=== PATIENT | male | born 1955 | race Two or more races ===

== ENCOUNTER 2017-03-13 10:05 | Inpatient (IN) | payer OTHER ==
[2017-03-13 10:19] VITALS: BMI 32.8
--- NOTE | 2017-03-13 10:39 | PDOC ---
History of Present Illness - General History Source: Patient Exam Limitations: No Limitations - History of Present Illness Initial Comments: 03/13/17 11:25 Patient is a 61 y/o male who presents to the ED who c/o of R elbow pain. Pt. states he was seen by his PCP Dr. Bal last week and was diagnosed with cellulitis of the R elbow. He was placed on Keflex on 03/07/17. He states that since being placed on Keflex, his elbow has not gotten better. He states the area of redness has increased and the swelling to his elbow has also increased. He states that he can move his elbow. Denies fevers, chills, constitutional symptoms, N/V/D, SOB, chest pain. <Bethany Cohn - Last Filed: 03/14/17 16:29> <Ariana Gao - Last Filed: 03/15/17 09:16> - General Chief Complaint: Redness To Affected Area Stated Complaint: WOUND INFECTION,high bp Time Seen by Provider: 03/13/17 10:37 Past History - Past Medical History Cancer: Yes (throat) Cardiac Disorders: Yes (cardiac cath) Diabetes: Yes HTN: Yes Hypercholesterolemia: Yes - Surgical History Cardiac Surgery: Yes (cath no stent) Orthopedic Surgery: (bilateral shoulders, left knee) - Immunization History Immunization Up to Date: Yes - Psycho/Social/Smoking Cessation Hx Anxiety: No Suicidal Ideation: No Smoking Status: No Smoking History: Former smoker Have you smoked in the past 12 months: No Number of Cigarettes Smoked Daily: 0 If you are a former smoker, when did you quit?: 2009 Information on smoking cessation initiated: No Hx Alcohol Use: No Drug/Substance Use Hx: No Substance Use Type: None Hx Substance Use Treatment: No <Bethany Cohn - Last Filed: 03/14/17 16:29> <Ariana Gao - Last Filed: 03/15/17 09:16> - Past Medical History Allergies/Adverse Reactions: Allergies Allergy/AdvReac Type Severity Reaction Status Date / Time No Known Allergies Allergy Verified 03/13/17 10:14 Home Medications: Ambulatory Orders Amlodipine Besylate [Norvasc -] 5 mg PO DAILY 02/22/14 Lisinopril [Prinivil -] 40 mg PO DAILY 02/22/14 Metformin HCl [Metformin HCl ER] 1,000 mg PO BID 02/23/14 Montelukast Na [Singulair -] 10 mg PO HS #30 02/23/14 Aspirin [ASA -] 81 mg PO DAILY 03/10/15 Metoprolol Tartrate 25 mg PO DAILY 03/10/15 Multivitamin with Minerals [Icaps Plus] 1 each PO DAILY 03/10/15 Rosuvastatin Calcium [Crestor] 20 mg PO ASDIR 03/10/15 Review of Systems - Review of Systems Able to Perform ROS?: Yes Is the patient limited [place] proficient: No Constitutional: Yes: Chills. No: Fever, Malaise, Weakness Respiratory: No: Cough, Shortness of Breath, Wheezing Cardiac (ROS): No: Chest Pain, Lightheadedness, Palpitations, Chest Tightness ABD/GI: No: Constipated, Diarrhea, Nausea, Vomiting Integumentary: Yes: Erythema (r elbow), Rash (r elbow) Neurological: No: Headache, Numbness, Paresthesia, Weakness All Other Systems: Reviewed and Negative <Bethany Cohn - Last Filed: 03/14/17 16:29> *Physical Exam - Vital Signs Last Vital Signs Temp Pulse Resp BP Pulse Ox 98.6 F 88 18 162/116 100 03/13/17 10:15 03/13/17 10:15 03/13/17 10:15 03/13/17 10:15 03/13/17 10:15 - Physical Exam Comments: 03/13/17 18:56 GENERAL: Well developed, well nourished. Awake and alert. No acute distress. HEENT: Normocephalic, atraumatic. PERRLA, EOMI. No conjunctival pallor. Sclera are non- icteric. Moist mucous membranes. Oropharynx is clear. NECK: Supple. Full ROM. No JVD. Carotid pulses 2+ and symmetric, without bruits. No thyromegaly. No lymphadenopathy. CARDIOVASCULAR: Regular rate and rhythm. No murmurs, rubs, or gallops. Distal pulses are 2+ and symmetric. PULMONARY: No evidence of respiratory distress. Lungs clear to auscultation bilaterally. No wheezing, rales or rhonchi. ABDOMINAL: Soft. Non-tender. Non-distended. No rebound or guarding. No organomegaly. Normoactive bowel sounds. MUSCULOSKELETAL Normal range of motion at all joints. No bony deformities or tenderness. No CVA tenderness. EXTREMITIES: Swelling and redness to the R elbow. Able to fully extend and flex the elbow with slight pain. Surrounding cellulitis extening to the medial mid upper arm to the medial mid lower arm. No cyanosis. No clubbing. No edema. No calf tenderness. SKIN: Warm and dry. Normal capillary refill. No rashes. No jaundice. NEUROLOGICAL: Alert, awake, appropriate. Cranial nerves 2-12 intact. No deficits to light touch and temperature in face, upper extremities and lower extremities. No motor deficits in the in face, upper extremities and lower extremities. Normoreflexic in the upper and lower extremities. Normal speech. Toes are down- going bilaterally. Gait is normal without ataxia. PSYCHIATRIC: Cooperative. Good eye contact. Appropriate mood and affect. <Bethany Cohn - Last Filed: 03/14/17 16:29> - Vital Signs Last Vital Signs Temp Pulse Resp BP Pulse Ox 98.4 F 79 20 146/86 99 03/15/17 07:41 03/15/17 07:41 03/15/17 07:41 03/15/17 07:41 03/14/17 21:00 <Ariana Gao - Last Filed: 03/15/17 09:16> ED Treatment Course - LABORATORY CBC & Chemistry Diagram: 03/14/17 07:40 03/14/17 07:40 <Bethany Cohn - Last Filed: 03/14/17 16:29> - LABORATORY CBC & Chemistry Diagram: 03/14/17 07:40 03/14/17 07:40 - ADDITIONAL ORDERS Additional order review: 03/13/17 11:05 Blood Culture - Preliminary Blood - Peripheral Venous NO GROWTH OBTAINED AFTER 24 HOURS, INCUBATION TO CONTINUE FOR 4 DAYS. 03/13/17 11:05 Blood Culture - Preliminary Blood - Peripheral Venous NO GROWTH OBTAINED AFTER 24 HOURS, INCUBATION TO CONTINUE FOR 4 DAYS. 03/13/17 11:05 Urine Culture - Final Urine - Urine Clean Catch NO GROWTH OBTAINED 03/13/17 11:05 RBC 5.23 MCV 89.4 MCHC 34.5 RDW 13.3 MPV 8.1 Neutrophils % 75.5 Lymphocytes % 14.2 D Monocytes % 7.7 Eosinophils % 1.6 Basophils % 1.0 - Medications Given in the ED: ED Medications Discontinued Medications Generic Name Dose Route Start Last Admin Trade Name Kal PRN Reason Stop Dose Admin Vancomycin HCl 1,000 mg/ 250 mls @ 250 mls/hr 03/13/17 10:59 03/13/17 12:00 Dextrose IVPB 03/13/17 11:58 250 mls/hr ONCE ONE Administration Protocol Piperacillin Sod/Tazobactam 50 mls @ 100 mls/hr 03/13/17 10:59 03/13/17 11:31 Sod 3.375 gm/ Dextrose IVPB 03/13/17 11:28 100 mls/hr ONCE ONE Administration Protocol Pneumococcal Polyvalent Vaccine 0.5 ml 03/13/17 17:00 03/13/17 19:30 Pneumovax - IM 03/13/17 17:01 0.5 ml .ONCE ONE Administration <Ariana Gao - Last Filed: 03/15/17 09:16> Medical Decision Making - Medical Decision Making 03/13/17 11:44 Pt. is a 61 y/o male with PMH of DM who presents to the ED with worsening elbow pain and cellulitis. Pt. is already on home antibiotics and failed therapy. Less likely septic joint/gout as patient can move the arm. Will order septic work up and pursue admission for IV antibiotics. PCP: Dr. Bal --> Dr. Baez admits 1. Septic work up 2. IV Vanc and Zosyn in the ED 3. Re-evaluate 03/14/17 12:49 Labs show a slightly elevated WBC. Pt. states he overall feels well. Spoke with Dr. Baez and the case was discussed. Accepts the pt. for admission to med/ surg. <Bethany Cohn - Last Filed: 03/14/17 16:29> *DC/Admit/Observation/Transfer - Discharge Dispostion Admit: Yes <Bethany Cohn - Last Filed: 03/14/17 16:29> - Attestations Physician Attestion: I reviewed the case with the mid-level practitioner and agree with the mid- level practitioner's assessment, diagnosis and disposition. <Ariana Gao - Last Filed: 03/15/17 09:16> Diagnosis at time of Disposition: Cellulitis Qualifiers: Site of cellulitis: extremity Site of cellulitis of extremity: upper extremity Laterality: right Qualified Code(s): L03.113 - Cellulitis of right upper limb - Discharge Dispostion Condition at time of disposition: Stable
[2017-03-13] MEDS ORDERED: PIPERACILLIN/TAZOB 3.375 GM 3.375 GM in DEXTROSE 5%-WATER - 50 ML IVPB ONE (10:59)
[2017-03-13] MEDS ORDERED: VANCOMYCIN 1,000 MG in DEXTROSE 5%-WATER - 250 ML IVPB ONE (10:59)
[2017-03-13 11:36] LABS: EOSINOPHIL 1.6 % (0-4.5); MCH 30.9 pg (25.7-33.7); MCHC 34.5 g/dl (32.0-35.9); MEAN CELL VOLUME 89.4 fl (80-96); MEAN PLT VOLUME 8.1 fl (7.5-11.1); NEUTROPHILS 75.5 % (42.8-82.8); PLATELET COUNT 256 K/MM3 (134-434); RDW 13.3 % (11.9-15.9); WHITE BLOOD COUNT 10.4 K/mm3 (4.0-10.0)
[2017-03-13 11:46] LABS: INR 1.14 (0.82-1.09); PROTHROMBIN TIME (PATIENT) 12.6 SEC (9.98-11.88)
[2017-03-13 11:49] LABS: ACTIVATED PTT 35.6 SECONDS (26.9-34.4)
[2017-03-13 11:52] LABS: URINE APPEARANCE SLCLOUDY; URINE BILIRUBIN NEGATIVE (NEGATIVE); URINE BLOOD NEGATIVE (NEGATIVE); URINE COLOR DKYELLOW; URINE GLUCOSE (UA) NEGATIVE (NEGATIVE); URINE KETONE NEGATIVE (NEGATIVE); URINE LEUK ESTERASE NEGATIVE (NEGATIVE); URINE NITRITE NEGATIVE (NEGATIVE); URINE UROBILINOGEN NEGATIVE mg/dL (0.2-1.0)
[2017-03-13 11:54] LABS: ALBUMIN 4.3 g/dl (3.4-5.0); ANION GAP 10 (8-16); BILIRUBIN,TOTAL 0.5 mg/dL (0.2-1.0); CALCIUM 9.4 mg/dL (8.5-10.1); CO2 27 mmol/L (21-32); CREATININE 0.9 mg/dL (0.7-1.3); GLUCOSE,RANDOM 174 mg/dL (74-106); SGOT/AST 19 U/L (15-37); SGPT/ALT 45 U/L (12-78); TOT PROT 8.4 g/dl (6.4-8.2)
[2017-03-13 11:55] LABS: ALK PHOS 94 U/L (45-117)
[2017-03-13 12:04] LABS: URINE PROTEIN 1+ (NEGATIVE)
[2017-03-13 12:05] LABS: URINE MUCUS MODERATE; URINE RBC 1 /hpf (0-3); URINE WBC 1 /hpf (3-5)
[2017-03-13] MEDS ORDERED: ACETAMINOPHEN 325 MG TABLET (FP) PO PRN (15:27)
[2017-03-13] MEDS ORDERED: ONDANSETRON 4 MG/2 ML VIAL IVPB PRN (15:27)
--- NOTE | 2017-03-13 15:31 | HP ---
Admitting History and Physical - Primary Care Physician PCP: Thad Bal - Admission Chief Complaint: My arm History of Present Illness: Mr oHskins is a very pleasant 61 year old male who comes in after failing outpatient therapy for his cellulitis. He says that last he developed redness, pain, and swelling of his right elbow. He was seen as an outpatient and prescribed keflex. He was taking the keflex and while the swelling improved he noticed he was having worsening redness. On Sunday he had an episode of rigors that resolved. He has felt feverish but has not taken his temperature. He has muscle aches and general malaise. He denies lightheadedness, dizziness, passing out, chest pain, nausea, vomiting, diarrhea, constipation, difficulty or pain on urination, or leg swelling. He noted the redness increasing today and came in for further evaluation. History Source: Patient Limitations to Obtaining History: No Limitations - Past Medical History Cardiovascular: Yes: CAD, HTN. No: AFIB, CHF Pulmonary: Yes: COPD Endocrine: Yes: Diabetes Mellitus - Past Surgical History Past Surgical History: Yes: Joint Replacement (knee) - Smoking History Smoking history: Former smoker Have you smoked in the past 12 months: No Aproximately how many cigarettes per day: 0 If you are a former smoker, when did you quit?: 2009 - Alcohol/Substance Use Hx Alcohol Use: No History of Substance Use: reports: None - Social History ADL: Independent History of Recent Travel: No Home Medications - Allergies Allergies/Adverse Reactions: Allergies Allergy/AdvReac Type Severity Reaction Status Date / Time No Known Allergies Allergy Verified 03/13/17 10:14 - Home Medications Home Medications: Ambulatory Orders Amlodipine Besylate [Norvasc -] 5 mg PO DAILY 02/22/14 Lisinopril [Prinivil -] 40 mg PO DAILY 02/22/14 Metformin HCl [Metformin HCl ER] 1,000 mg PO BID 02/23/14 Montelukast Na [Singulair -] 10 mg PO HS #30 02/23/14 Aspirin [ASA -] 81 mg PO DAILY 03/10/15 Metoprolol Tartrate 25 mg PO DAILY 03/10/15 Multivitamin with Minerals [Icaps Plus] 1 each PO DAILY 03/10/15 Rosuvastatin Calcium [Crestor] 20 mg PO ASDIR 08/26/15 Family Disease History - Family Disease History Family Disease History: Heart Disease: Mother, Brother, Sister Review of Systems Findings/Remarks: Full review of systems obtained, as per HPI and otherwise negative Physical Examination Vital Signs: Vital Signs Temperature 37.0 C 03/13/17 10:15 Pulse Rate 87 03/13/17 12:15 Respiratory Rate 87 H 03/13/17 12:15 Blood Pressure 156/107 03/13/17 12:15 O2 Sat by Pulse Oximetry (%) 100 03/13/17 12:15 Constitutional: Yes: No Distress, Calm, Obese Eyes: Yes: Conjunctiva Clear, EOM Intact, PERRL HENT: Yes: Atraumatic, Normocephalic Cardiovascular: Yes: Regular Rate and Rhythm. No: Gallop, Murmur, Rub Respiratory: Yes: Regular, CTA Bilaterally. No: Rales, Rhonchi, Wheezes Gastrointestinal: Yes: Normal Bowel Sounds, Soft. No: Distention, Tenderness Extremities: Yes: Erythema (RUE) Edema: No Labs: Laboratory Results - last 24 hr 03/13/17 03/13/17 03/13/17 11:05 11:05 11:05 WBC 10.4 H D RBC 5.23 Hgb 16.1 Hct 46.7 MCV 89.4 MCH 30.9 MCHC 34.5 RDW 13.3 Plt Count 256 MPV 8.1 Neutrophils % 75.5 Lymphocytes % 14.2 D Monocytes % 7.7 Eosinophils % 1.6 Basophils % 1.0 ESR INR 1.14 PTT (Actin FS) 35.6 H Sodium Potassium Chloride Carbon Dioxide Anion Gap BUN Creatinine Creat Clearance w eGFR Random Glucose Lactic Acid Calcium Total Bilirubin AST ALT Alkaline Phosphatase C-Reactive Protein Total Protein Albumin Urine Color Dkyellow Urine Appearance Slcloudy Urine pH 5.0 Urine Protein 1+ H Urine Glucose (UA) Negative Urine Ketones Negative Urine Blood Negative Urine Nitrite Negative Urine Bilirubin Negative Urine Urobilinogen Negative Ur Leukocyte Esterase Negative Urine RBC 1 Urine WBC 1 Ur Epithelial Cells Rare Urine Mucus Moderate 03/13/17 03/13/17 03/13/17 11:05 11:05 11:23 WBC RBC Hgb Hct MCV MCH MCHC RDW Plt Count MPV Neutrophils % Lymphocytes % Monocytes % Eosinophils % Basophils % ESR INR PTT (Actin FS) Sodium 137 Potassium 3.7 Chloride 100 Carbon Dioxide 27 Anion Gap 10 BUN 12 Creatinine 0.9 Creat Clearance w eGFR > 60 Random Glucose 174 H D Lactic Acid 1.9 Calcium 9.4 Total Bilirubin 0.5 AST 19 D ALT 45 D Alkaline Phosphatase 94 C-Reactive Protein 2.0 H Cancelled Total Protein 8.4 H Albumin 4.3 Urine Color Urine Appearance Urine pH Urine Protein Urine Glucose (UA) Urine Ketones Urine Blood Urine Nitrite Urine Bilirubin Urine Urobilinogen Ur Leukocyte Esterase Urine RBC Urine WBC Ur Epithelial Cells Urine Mucus 03/13/17 11:39 WBC RBC Hgb Hct MCV MCH MCHC RDW Plt Count MPV Neutrophils % Lymphocytes % Monocytes % Eosinophils % Basophils % ESR 51 H INR PTT (Actin FS) Sodium Potassium Chloride Carbon Dioxide Anion Gap BUN Creatinine Creat Clearance w eGFR Random Glucose Lactic Acid Calcium Total Bilirubin AST ALT Alkaline Phosphatase C-Reactive Protein Total Protein Albumin Urine Color Urine Appearance Urine pH Urine Protein Urine Glucose (UA) Urine Ketones Urine Blood Urine Nitrite Urine Bilirubin Urine Urobilinogen Ur Leukocyte Esterase Urine RBC Urine WBC Ur Epithelial Cells Urine Mucus Imaging - Results Chest X-ray: Report Reviewed, Image Reviewed Problem List - Problems (1) Cellulitis Assessment/Plan: -given vancomycin and zosyn in the ED -case d/w ID -continue vancomycin -monitor for improvement Code(s): L03.90 - CELLULITIS, UNSPECIFIED Qualifiers: Site of cellulitis: extremity Site of cellulitis of extremity: upper extremity Laterality: right Qualified Code(s): L03.113 - Cellulitis of right upper limb (2) ASHD (arteriosclerotic heart disease) Assessment/Plan: -quiescent -home meds reviewed -continue crestor, zetia, aspirin, lisinopril, and toprol xl Code(s): I25.10 - ATHSCL HEART DISEASE OF [place] CORONARY ARTERY W/O ANG PCTRS (3) Diabetes Assessment/Plan: -continue glyburide, metformin, and januvia -diabetic diet -FSBS and SSI Code(s): E11.9 - TYPE 2 DIABETES MELLITUS WITHOUT COMPLICATIONS (4) Hypertension Assessment/Plan: -continue lisinopril, amlodipine, and toprol xl Code(s): I10 - ESSENTIAL (PRIMARY) HYPERTENSION
[2017-03-13] MEDS ORDERED: PNEUMOC 13-VAL CONJ-DIP CRM/PF 0.5 ML DISP.SYRIN IM ONE (15:36)
--- NOTE | 2017-03-13 16:53 | EKG ---
Test Reason : Blood Pressure : / mmHG Vent. Rate : 087 BPM Atrial Rate : 087 BPM P-R Int : 144 ms QRS Dur : 088 ms QT Int : 354 ms P-R-T Axes : 053 016 061 degrees QTc Int : 425 ms NORMAL SINUS RHYTHM POSSIBLE LEFT ATRIAL ENLARGEMENT INFERIOR INFARCT (CITED ON OR BEFORE 25-APR-2011) ABNORMAL ECG WHEN COMPARED WITH ECG OF 23-FEB-2014 05:05, NO SIGNIFICANT CHANGE WAS FOUND REPEAT EKG IF CLINICALLY INDICATED Confirmed by ELMA HINOJOSA MD ([id number]) on 03/13/2017 4:52:40 PM Referred By: Confirmed By:ELMA HINOJOSA MD
[2017-03-13] MEDS ORDERED: PNEUMOCOCCAL 23 VACCINE 0.5 ML VIAL IM ONE (17:00)
--- NOTE | 2017-03-13 17:01 | PN ---
Progress Note (short form) - Note Progress Note: ID consult dictated imp/reccd 61 year old man with DM developed elbow/forearm swelling on Sunday- saw his PMD Dr Bal and was started on Keflex erythema spread over the weekend and he came to the ED this am olecranon bursitis with cellulitis doubt insect bite given vancomycin and zosyn in ED will continue Vancomycin with plans for shift to po clindamycin if arm continues to improve he is feeling much better and wants to go home probiotics
[2017-03-13] MEDS: metFORMIN HCL 500 MG TABLET (FP) PO SCH (17:11)
[2017-03-13] MEDS: INSULIN SLIDING SCALE (NOVOLOG) 1 VIAL SQ SCH ×2 (17:13→21:50)
[2017-03-13] MEDS ORDERED: PIPERACILLIN/TAZOB 3.375 GM/50 ML PRE-DOCKED IVPB SCH (18:00)
[2017-03-13] MEDS: glyBURIDE 5 MG TABLET (UD) PO SCH (18:21)
--- NOTE | 2017-03-13 18:40 | CONS ---
DATE OF CONSULTATION: DATE OF DICTATION: 03/13/2017 INFECTIOUS DISEASE CONSULTATION REQUESTING PHYSICIAN: Ayo Baez M.D. CONSULTING PHYSICIAN: Kari Romero M.D. HISTORY OF PRESENT ILLNESS: This is a 61-year-old man who has past medical history notable for diabetes and throat cancer. He presented to his PMD on Sunday with acute onset of erythema and swelling of his right elbow. He was felt to have cellulitis with possible olecranon bursitis. He was started on Keflex 500 t.i.d. which he took for the weekend. He developed erythema on the inner part of his upper arm, and he felt radiation into his axilla, and he presented to the emergency room. He states he felt feverish at home, but did not have any documented fever. He has loss of appetite but no nausea, vomiting, diarrhea, or dysuria. He does not recall doing any tasks with his elbow. Does not recall any bites. He does work over at [employer], taking care of the property, and spends his time outside. ALLERGIES: No known drug allergies. MEDICATION: At home include amlodipine, Prinivil, metformin, Singulair, aspirin, metoprolol, multivitamins, and Crestor. He was just started on Keflex and Naprosyn on Sunday. PAST MEDICAL HISTORY: Notable for throat cancer. He is status post surgery. He has a history of cardiac catheterization in the past, diabetes, hypertension, hypercholesterolemia. He has had bilateral shoulder and knee arthroscopy. FAMILY HISTORY: Noncontributory. SOCIAL HISTORY: He is , he is a former smoker, he quit when he was diagnosed with throat cancer. There is no history of any substance use. PHYSICAL EXAMINATION: General: He is awake and alert. He reports feeling much better since this morning when he received antibiotics in the emergency room. Vital signs: Temperature 98.6, pulse of 83, blood pressure 157/87, respiratory rate 18, his stated weight is 235. HEENT: Normocephalic. Eyes are anicteric. Neck: Supple. Lungs: Clear to auscultation. Heart: Regular rate and rhythm. Abdomen: Soft, nontender. Extremities: Without edema. His right elbow, he has some fullness and abrasion on the right elbow. There is some surrounding erythema extending to his inner arm, it is starting to fade. He has some mild axillary adenopathy. LABORATORY: Notable for a white count of 10.4, hemoglobin 16, platelets 256, INR 1, BUN and creatinine are 12 and 0.9, CRP of 2, LFTs are normal, urinalysis is negative, cultures are pending. Chest x-ray shows no pathology. IMPRESSION: In summary, this is a 61-year-old man with diabetes who developed elbow forearm swelling consistent with olecranon bursitis with cellulitis. I doubt insect bite. Given vancomycin and Zosyn in the emergency room. Will continue vancomycin as he failed to improve on Keflex with plans to shift to oral clindamycin if arm continues to improve. Feeling much better, wants to go home. As well will treat him with probiotics, which I have started. Case discussed with Dr. Baez. KARI ROMERO M.D. [id number]
[2017-03-13] MEDS ORDERED: PT OWN MED DRAWER 7, Y5N ONE (21:23)
[2017-03-13] MEDS: VANCOMYCIN 1,250 MG in DEXTROSE 5%-WATER - 250 ML IVPB SCH (21:42)
[2017-03-13] MEDS ORDERED: ROSUVASTATIN CA 10 MG TABLET (FP) PO SCH (22:00)
[2017-03-13] MEDS: MONTELUKAST NA 10 MG TABLET PO SCH (22:53)
[2017-03-14] MEDS: metFORMIN HCL 500 MG TABLET (FP) PO SCH ×2 (06:30→17:17)
[2017-03-14] MEDS: sitaGLIPtin PHOSPHATE 100 MG TABLET (FP) PO SCH (06:31)
[2017-03-14] MEDS: glyBURIDE 5 MG TABLET (UD) PO SCH ×2 (06:31→17:17)
[2017-03-14] MEDS: INSULIN SLIDING SCALE (NOVOLOG) 1 VIAL SQ SCH ×4 (06:32→22:22)
[2017-03-14 07:53] LABS: BASOPHIL 0.8 % (0-2.0); EOSINOPHIL 2.9 % (0-4.5); MCH 30.7 pg (25.7-33.7); MEAN CELL VOLUME 87.8 fl (80-96); MEAN PLT VOLUME 8.2 fl (7.5-11.1); NEUTROPHILS 69.7 % (42.8-82.8); PLATELET COUNT 243 K/MM3 (134-434); RDW 13.1 % (11.9-15.9); WHITE BLOOD COUNT 9.7 K/mm3 (4.0-10.0)
[2017-03-14 08:31] LABS: ANION GAP 10 (8-16); CALCIUM 9.1 mg/dL (8.5-10.1); CO2 27 mmol/L (21-32); GLUCOSE,RANDOM 178 mg/dL (74-106)
[2017-03-14 08:33] LABS: CREATININE 0.9 mg/dL (0.7-1.3); PHOSPHOROUS 3.4 mg/dL (2.5-4.9)
--- NOTE | 2017-03-14 08:44 | PN ---
Progress Note (short form) - Note Progress Note: day #2 vancomycin no fevers erythema improving notes fullness in elbow Vital Signs Period Temp Pulse Resp BP Sys/Bae Pulse Ox Last 24 Hr 98.2 F-98.6 F 80-88 18-87 151-163/82-116 97-100 cor-rrr lungs clear abd soft, nt ext +swelling (mild) left olecranon bursa with callus, minimal erythema CBC, BMP 03/14/17 07:40 imp/reccd olecranon bursitis with cellulitis-improving doubt insect bite improving, I don"t think there is enough fluid to drain can switch to po clindamycin 300 tid to complete total 14 days when ready for discharge probiotics for one month Problem List - Problems (1) Olecranon bursitis of left elbow Code(s): M70.22 - OLECRANON BURSITIS, LEFT ELBOW (2) Cellulitis Code(s): L03.90 - CELLULITIS, UNSPECIFIED Qualifiers: Site of cellulitis: extremity Site of cellulitis of extremity: upper extremity Laterality: right Qualified Code(s): L03.113 - Cellulitis of right upper limb
[2017-03-14] MEDS: ENOXAPARIN NA (PORCINE) 40 MG/0.4 ML DISP.SYRIN SQ SCH ×2 (10:37→10:47)
[2017-03-14] MEDS: METOPROLOL SUCCINATE 50 MG TAB.SR.24H (FP) PO SCH (10:37)
[2017-03-14] MEDS: LISINOPRIL 20 MG TABLET (FP) PO SCH (10:38)
[2017-03-14] MEDS: ASPIRIN 81 MG CHEWABLE TABLETS PO SCH (10:38)
[2017-03-14] MEDS: PANTOPRAZOLE 40 MG TABLET (FP) PO SCH ×2 (10:38→10:47)
[2017-03-14] MEDS: LACTOBACILLUS ACIDOPHILUS 1 EACH TAB (FP) PO SCH (10:38)
[2017-03-14] MEDS: amLODIPine BESYLATE 5 MG TABLET (FP) PO SCH (10:38)
[2017-03-14] MEDS: CHOLECALCIFEROL (VITAMIN D3) 1,000 UNIT TABLET (FP) PO SCH (10:38)
[2017-03-14] MEDS: VANCOMYCIN 1,250 MG in DEXTROSE 5%-WATER - 250 ML IVPB SCH ×2 (10:39→22:21)
[2017-03-14] MEDS: EZETIMIBE 10 MG TABLET (FP) PO SCH (10:40)
--- NOTE | 2017-03-14 13:37 | PN ---
Progress Note, Physician Chief Complaint: Patient says he is feeling better. Feels elbow is improved and redness significantly decreased. No cp, sob, n/v. - Current Medication List Current Medications: Active Medications Acetaminophen (Tylenol -) 650 mg PO Q4H PRN PRN Reason: FEVER OR PAIN Amlodipine Besylate (Norvasc -) 5 mg PO DAILY [facility] Last Admin: 03/14/17 10:38 Dose: 5 mg Aspirin (Asa -) 81 mg PO DAILY [facility] Last Admin: 03/14/17 10:38 Dose: 81 mg Cholecalciferol (Vitamin D3 -) 2,000 unit PO DAILY [facility] Last Admin: 03/14/17 10:38 Dose: 2,000 unit Ezetimibe (Zetia -) 10 mg PO DAILY [facility] Last Admin: 03/14/17 10:40 Dose: 10 mg Enoxaparin Sodium (Lovenox -) 40 mg SQ DAILY [facility] Last Admin: 03/14/17 10:47 Dose: Not Given Glyburide (Diabeta -) 5 mg PO BID@0700,1630 [facility] Last Admin: 03/14/17 06:31 Dose: 5 mg Vancomycin HCl 1,250 mg/ (Dextrose) 250 mls @ 166.667 mls/hr IVPB BID EULALIO PRN Reason: Protocol Last Admin: 03/14/17 10:39 Dose: 166.667 mls/hr Insulin Aspart (Novolog Vial Sliding Scale -) 1 vial SQ ACHS EULALIO PRN Reason: Protocol Last Admin: 03/14/17 12:21 Dose: Not Given Lactobacillus Acidophilus (Bacid -) 1 tab PO DAILY [facility] Last Admin: 03/14/17 10:38 Dose: 1 tab Lisinopril (Prinivil) 40 mg PO DAILY [facility] Last Admin: 03/14/17 10:38 Dose: 40 mg Metformin HCl (Glucophage -) 500 mg PO BID@0700,1630 [facility] Last Admin: 03/14/17 06:30 Dose: 500 mg Metoprolol Succinate (Toprol Xl -) 50 mg PO DAILY [facility] Last Admin: 03/14/17 10:37 Dose: 50 mg Montelukast Sodium (Singulair -) 10 mg PO HS [facility] Last Admin: 03/13/17 22:53 Dose: Not Given Ondansetron HCl (Zofran Injection) 4 mg IVPB Q6H PRN PRN Reason: NAUSEA Pantoprazole Sodium (Protonix -) 40 mg PO DAILY [facility] Last Admin: 03/14/17 10:47 Dose: Not Given Rosuvastatin Calcium (Crestor -) 10 mg PO Q48H [facility] Last Admin: 03/13/17 22:53 Dose: Not Given Sitagliptin Phosphate (Januvia -) 100 mg PO DAILY@0700 [facility] Last Admin: 03/14/17 06:31 Dose: 100 mg - Objective Vital Signs: Vital Signs Temperature 36.9 C 03/14/17 10:00 Pulse Rate 83 03/14/17 10:00 Respiratory Rate 18 03/14/17 10:00 Blood Pressure 162/96 03/14/17 10:00 O2 Sat by Pulse Oximetry (%) 97 03/13/17 21:00 Constitutional: Yes: No Distress, Calm, Obese Cardiovascular: Yes: Regular Rate and Rhythm. No: Gallop, Murmur, Rub Respiratory: Yes: Regular, CTA Bilaterally. No: Rales, Rhonchi, Wheezes Gastrointestinal: Yes: Normal Bowel Sounds, Soft. No: Distention, Tenderness Extremities: Yes: Erythema (significantly improved) Edema: No Labs: CBC, BMP 03/14/17 07:40 03/14/17 07:40 INR, PTT INR 1.14 (0.82-1.09) 03/13/17 11:05 Problem List - Problems (1) Cellulitis Code(s): L03.90 - CELLULITIS, UNSPECIFIED Qualifiers: Site of cellulitis: extremity Site of cellulitis of extremity: upper extremity Laterality: right Qualified Code(s): L03.113 - Cellulitis of right upper limb (2) ASHD (arteriosclerotic heart disease) Code(s): I25.10 - ATHSCL HEART DISEASE OF [place] CORONARY ARTERY W/O ANG PCTRS (3) Diabetes Code(s): E11.9 - TYPE 2 DIABETES MELLITUS WITHOUT COMPLICATIONS (4) Hypertension Code(s): I10 - ESSENTIAL (PRIMARY) HYPERTENSION Assessment/Plan (1) Cellulitis Assessment/Plan: -appreciate ID assistance -continue vancomycin -plan for discharge in am on clindamycin Code(s): L03.90 - CELLULITIS, UNSPECIFIED Qualifiers: Site of cellulitis: extremity Site of cellulitis of extremity: upper extremity Laterality: right Qualified Code(s): L03.113 - Cellulitis of right upper limb (2) ASHD (arteriosclerotic heart disease) Assessment/Plan: -quiescent -continue crestor, zetia, aspirin, lisinopril, and toprol xl Code(s): I25.10 - ATHSCL HEART DISEASE OF [place] CORONARY ARTERY W/O ANG PCTRS (3) Diabetes Assessment/Plan: -continue glyburide, metformin, and januvia -diabetic diet -FSBS and SSI Code(s): E11.9 - TYPE 2 DIABETES MELLITUS WITHOUT COMPLICATIONS (4) Hypertension Assessment/Plan: -continue lisinopril, amlodipine, and toprol xl Code(s): I10 - ESSENTIAL (PRIMARY) HYPERTENSION
[2017-03-14] MEDS ORDERED: PT OWN MED DRAWER 7, Y5N ONE ×2 (17:04→19:18)
[2017-03-14] MEDS: MONTELUKAST NA 10 MG TABLET PO SCH (22:21)
[2017-03-15] MEDS ORDERED: PT OWN MED DRAWER 7, Y5N ONE (06:31)
[2017-03-15] MEDS: glyBURIDE 5 MG TABLET (UD) PO SCH (06:33)
[2017-03-15] MEDS: sitaGLIPtin PHOSPHATE 100 MG TABLET (FP) PO SCH (06:33)
[2017-03-15] MEDS: metFORMIN HCL 500 MG TABLET (FP) PO SCH (06:33)
[2017-03-15] MEDS: INSULIN SLIDING SCALE (NOVOLOG) 1 VIAL SQ SCH ×2 (06:33→12:04)
[2017-03-15] MEDS: ASPIRIN 81 MG CHEWABLE TABLETS PO SCH (09:52)
[2017-03-15] MEDS: CHOLECALCIFEROL (VITAMIN D3) 1,000 UNIT TABLET (FP) PO SCH (09:52)
[2017-03-15] MEDS: PANTOPRAZOLE 40 MG TABLET (FP) PO SCH (09:52)
[2017-03-15] MEDS: LISINOPRIL 20 MG TABLET (FP) PO SCH (09:52)
[2017-03-15] MEDS: amLODIPine BESYLATE 5 MG TABLET (FP) PO SCH (09:52)
[2017-03-15] MEDS: LACTOBACILLUS ACIDOPHILUS 1 EACH TAB (FP) PO SCH (09:53)
[2017-03-15] MEDS: METOPROLOL SUCCINATE 50 MG TAB.SR.24H (FP) PO SCH (09:53)
[2017-03-15] MEDS: ENOXAPARIN NA (PORCINE) 40 MG/0.4 ML DISP.SYRIN SQ SCH (10:34)
[2017-03-15] MEDS: VANCOMYCIN 1,250 MG in DEXTROSE 5%-WATER - 250 ML IVPB SCH (10:34)
[2017-03-15] MEDS: EZETIMIBE 10 MG TABLET (FP) PO SCH (10:36)
--- NOTE | 2017-03-15 10:44 | DS ---
Physical Examination Vital Signs: Vital Signs Temperature 36.9 C 03/15/17 07:41 Pulse Rate 79 03/15/17 07:41 Respiratory Rate 20 03/15/17 07:41 Blood Pressure 146/86 03/15/17 07:41 O2 Sat by Pulse Oximetry (%) 99 03/14/17 21:00 Constitutional: Yes: Well Nourished, No Distress, Calm Cardiovascular: Yes: Regular Rate and Rhythm. No: Gallop, Murmur, Rub Respiratory: Yes: Regular, CTA Bilaterally. No: Rales, Rhonchi, Wheezes Gastrointestinal: Yes: Normal Bowel Sounds, Soft. No: Distention, Tenderness Extremities: Yes: Erythema (minimal) Edema: No Labs: CBC, BMP 03/14/17 07:40 03/14/17 07:40 Discharge Summary Reason For Visit: CELLULITIS Current Active Problems Cellulitis (Acute) Olecranon bursitis of left elbow (Acute) Hospital Course: (1) Cellulitis Code(s): L03.90 - CELLULITIS, UNSPECIFIED Qualifiers: Site of cellulitis: extremity Site of cellulitis of extremity: upper extremity Laterality: right Qualified Code(s): L03.113 - Cellulitis of right upper limb (2) ASHD (arteriosclerotic heart disease) Code(s): I25.10 - ATHSCL HEART DISEASE OF [place] CORONARY ARTERY W/O ANG PCTRS (3) Diabetes Code(s): E11.9 - TYPE 2 DIABETES MELLITUS WITHOUT COMPLICATIONS (4) Hypertension Code(s): I10 - ESSENTIAL (PRIMARY) HYPERTENSION Mr Hoskins is a very pleasant 61 year old who came in with cellulitis and olencranon bursitis that failed outpatient therapy. He presented and was admitted to the hospital. He was seen by ID started on vancomycin. His cellulitis and bursitis improved significantly. He is safe for discharge home on oral clindamycin. He will also be discharged on lactobacillus for one month to prevent c diff colitis. 33 minutes spent in preparation of this discharge Condition: Good - Instructions Diet, Activity, Other Instructions: resume previous diet and activity Referrals: Thad Bal MD [Primary Care Provider] - Disposition: HOME - Home Medications Comprehensive Discharge Medication List: Ambulatory Orders Amlodipine Besylate [Norvasc -] 5 mg PO DAILY 02/22/14 Lisinopril [Prinivil -] 40 mg PO DAILY 02/22/14 Metformin HCl [Metformin HCl ER] 1,000 mg PO BID 02/23/14 Montelukast Na [Singulair -] 10 mg PO HS #30 02/23/14 Aspirin [ASA -] 81 mg PO DAILY 03/10/15 Multivitamin with Minerals [Icaps Plus] 1 each PO DAILY 03/10/15 Rosuvastatin Calcium [Crestor] 20 mg PO ASDIR 03/10/15 Clindamycin [Cleocin -] 300 mg PO TID #40 capsule 03/15/17 Ezetimibe [Zetia -] 10 mg PO DAILY tablet 03/15/17 Glyburide [Micronase -] 5 mg PO BID@0700,1630 tablet 03/15/17 Lactobacillus Acidophilus [Bacid -] 1 tab PO DAILY #30 tab 03/15/17 Metoprolol Succinate [Toprol XL -] 50 mg PO DAILY tab.sr 03/15/17
[2017-03-15 10:55] VITALS: BP 140/82; PULSE 72; TEMP 99.1
== END 2017-03-15 12:57 | disposition home or self-care (01) | DRG 603 ==
LOC: JER 10:05 → JERBED 13:28 → J8W 15:43
PROVIDERS: ADMIT Internal Medicine; ATTEND Internal Medicine
DX: L03.113 Cellulitis of right upper limb (principal); I25.10 Atherosclerotic heart disease of native coronary artery without angina pectoris; E11.9 Type 2 diabetes mellitus without complications; I10 Essential (primary) hypertension; M70.22 Olecranon bursitis, left elbow; Z87.891 Personal history of nicotine dependence
CPT/HCPCS: 36415; 71010-TC; 80048; 80053; 81003; 81015; 83605; 83735; 84100; 85025; 85610; 85651; 85730; 86140; 87040; 87086; 90732; 93005; 93010; 99284-25; G0009

== ENCOUNTER 2017-10-18 07:25 | Emergency (ER) | payer OTHER ==
[2017-10-18 07:43] VITALS: TEMP 99.3; BMI 32.8
--- NOTE | 2017-10-18 07:59 | PDOC ---
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 The pain is 6/10-8/10, sharp, intermittent, worse with deep inspiration, and only relieved with laying still and not breathing deeply. Denies any trauma or MSK injury to his back but is very physical in his active work duties. Of note, his pressures have been very elevated over the past month because of accidental medical non- compliance (lost his amlodipine bottle and wasn't cognizant of it). He had an admission two weeks prior in our system and had pressures in the 200s systolic which was improved with minimal anti-HTN medications. He has had a cough over the past month as well. Denies fevers, chills, lightheadeenss, syncope, nausea vomiting, diarrhea, constipation, or other symptoms. 10/18/17 09:35 Past History - Past Medical History Allergies/Adverse Reactions: Allergies Allergy/AdvReac Type Severity Reaction Status Date / Time No Known Allergies Allergy Verified 10/18/17 07:43 Home Medications: Ambulatory Orders Amlodipine Besylate [Norvasc -] 5 mg PO DAILY 02/22/14 Lisinopril [Prinivil -] 40 mg PO DAILY 02/22/14 Metformin HCl [Metformin HCl ER] 1,000 mg PO BID 02/23/14 Montelukast Na [Singulair -] 10 mg PO HS #30 02/23/14 Aspirin [ASA -] 81 mg PO DAILY 03/10/15 Multivitamin with Minerals [Icaps Plus] 1 each PO DAILY 03/10/15 Rosuvastatin Calcium [Crestor] 20 mg PO ASDIR 03/10/15 Ezetimibe [Zetia -] 10 mg PO DAILY tablet 03/15/17 Glyburide [Micronase -] 5 mg PO BID@0700,1630 tablet 03/15/17 Metoprolol Succinate [Toprol XL -] 50 mg PO DAILY tab.sr 03/15/17 Cancer: Yes (throat) Cardiac Disorders: Yes (cardiac cath) COPD: No Diabetes: Yes HTN: Yes Hypercholesterolemia: Yes - Surgical History Cardiac Surgery: Yes (cath no stent) Orthopedic Surgery: (bilateral shoulders, left knee) - Immunization History Immunization Up to Date: Yes - Suicide/Smoking/Psychosocial Hx Smoking Status: No Smoking History: Never smoked Have you smoked in the past 12 months: No Number of Cigarettes Smoked Daily: 0 If you are a former smoker, when did you quit?: 2009 Information on smoking cessation initiated: No Hx Alcohol Use: No Drug/Substance Use Hx: No Substance Use Type: None Hx Substance Use Treatment: No Review of Systems - Review of Systems Constitutional: No: Chills, Diaphoresis, Fever, Loss of Appetite HEENTM: No: Blurred Vision, Double Vision Respiratory: Yes: Cough. No: Shortness of Breath, SOB with Exertion, Productive cough Cardiac (ROS): No: Chest Pain, Irregular Heart Rate, Chest Tightness ABD/GI: No: Diarrhea, Nausea, Vomiting : No: Dysuria, Discharge, Frequency Musculoskeletal: Yes: Back Pain. No: Joint Pain, Joint Swelling Integumentary: No: Lesions, Lumps, Pallor Neurological: No: Headache, Numbness *Physical Exam - Vital Signs Last Vital Signs Temp Pulse Resp BP Pulse Ox 99.3 F 96 H 18 163/89 99 10/18/17 07:40 10/18/17 07:40 10/18/17 07:40 10/18/17 07:40 10/18/17 07:40 - Physical Exam General Appearance: Yes: Nourished, Appropriately Dressed. No: Apparent Distress HEENT: positive: EOMI, LORNE, Normal ENT Inspection, Normal Voice Neck: positive: Trachea midline, Normal Thyroid, Supple. negative: Tender, Rigid Respiratory/Chest: positive: Lungs Clear, Normal Breath Sounds. negative: Chest Tender, Respiratory Distress, Accessory Muscle Use Cardiovascular: positive: Regular Rhythm, Regular Rate Gastrointestinal/Abdominal: positive: Normal Bowel Sounds, Flat, Soft. negative : Tender Musculoskeletal: positive: Normal Inspection. negative: CVA Tenderness Extremity: positive: Normal Capillary Refill, Normal Inspection, Normal Range of Motion. negative: Tender Integumentary: positive: Normal Color, Dry, Warm Neurologic: positive: Fully Oriented, Alert, Normal Mood/Affect, Normal Response , Motor Strength /5 ED Treatment Course - LABORATORY CBC & Chemistry Diagram: 10/18/17 08:39 10/18/17 08:39 Medical Decision Making - Medical Decision Making 61 year old male active male with bilateral lower back for the past few days worse with deep inspiration. Denies SOB and lungs clear, No reproducible pain. Labs WNL including Troponin and D-dimer. CT demonstrating bilateral renal cysts and hepatic dome calcifications. No concerning finds so will DC home with Katja follow up. Spoke to katja and he was fine with our workup. 10/18/17 13:19 *DC/Admit/Observation/Transfer Diagnosis at time of Disposition: Back pain Qualifiers: Back pain location: low back pain Chronicity: acute Back pain laterality: bilateral Sciatica presence: without sciatica Qualified Code(s): M54.5 - Low back pain - Discharge Dispostion Disposition: HOME Condition at time of disposition: Improved Admit: No - Referrals Referrals: Thad Bal MD [Primary Care Provider] - - Patient Instructions Printed Discharge Instructions: DI for Low Back Pain Additional Instructions: Your CT shows renal cysts which could possible be the cause of your pains. Please use Tylenol for your pain and please followup with Dr. Bal in the next three days for further workup. Please return to the ED for new or worsening symptoms. - Post Discharge Activity
[2017-10-18 08:44] LABS: BASO % 0.8 % (0-2.0); EOS % 2.2 % (0-4.5); HEMATOCRIT 44.3 % (35.4-49); HEMOGLOBIN 15.4 GM/dL (11.7-16.9); MCH 30.9 pg (25.7-33.7); MCHC 34.8 g/dl (32.0-35.9); MEAN CELL VOLUME 88.9 fl (80-96); MEAN PLT VOLUME 8.4 fl (7.5-11.1); MONO % 10.3 % (3.8-10.2); NEUT % 65.7 % (42.8-82.8); PLATELET COUNT 234 K/MM3 (134-434); RBC 4.98 M/mm3 (4.00-5.60); RDW 13.2 % (11.9-15.9); WHITE BLOOD COUNT 8.1 K/mm3 (4.0-10.0)
[2017-10-18 08:50] VITALS: BP 151/80; PULSE 88
[2017-10-18 08:52] LABS: URINE APPEARANCE CLEAR; URINE BILIRUBIN NEGATIVE (<2.0 mg/dL); URINE BLOOD NEGATIVE (NEGATIVE); URINE COLOR YELLOW; URINE GLUCOSE (UA) 3+ (NEGATIVE); URINE KETONE NEGATIVE (NEGATIVE); URINE LEUK ESTERASE NEGATIVE (NEGATIVE); URINE NITRITE NEGATIVE (NEGATIVE); URINE PROTEIN NEGATIVE (NEGATIVE); URINE UROBILINOGEN NEGATIVE mg/dL (0.2-1.0)
[2017-10-18 09:01] LABS: INR 1.08 (0.82-1.09); PROTHROMBIN TIME (PATIENT) 12.2 SEC (9.98-11.88)
[2017-10-18 09:31] LABS: ALBUMIN 4.2 g/dl (3.4-5.0); ANION GAP 14 (8-16); BILIRUBIN,TOTAL 0.6 mg/dL (0.2-1.0); BLOOD UREA NITROGEN 16 mg/dL (7-18); CALCIUM 9.1 mg/dL (8.5-10.1); CHLORIDE 96 mmol/L (98-107); CO2 26 mmol/L (21-32); POTASSIUM 4.1 mmol/L (3.5-5.1); SGOT/AST 30 U/L (15-37); SGPT/ALT 47 U/L (12-78); SODIUM 136 mmol/L (136-145); TOT PROT 8.3 g/dl (6.4-8.2)
[2017-10-18 09:37] LABS: ALK PHOS 121 U/L (45-117)
[2017-10-18 10:49] LABS: GLUCOSE,RANDOM 302 mg/dL (74-106)
--- NOTE | 2017-10-18 11:04 | EKG ---
Test Reason : Blood Pressure : / mmHG Vent. Rate : 086 BPM Atrial Rate : 086 BPM P-R Int : 158 ms QRS Dur : 086 ms QT Int : 360 ms P-R-T Axes : 052 -07 009 degrees QTc Int : 430 ms NORMAL SINUS RHYTHM POSSIBLE LEFT ATRIAL ENLARGEMENT POSSIBLE ANTERIOR INFARCT , AGE UNDETERMINED ABNORMAL ECG WHEN COMPARED WITH ECG OF 05-OCT-2017 14:25, NO SIGNIFICANT CHANGE WAS FOUND Confirmed by AKOSUA CORRAL, EUSEBIA ([id number]) on 10/18/2017 11:04:17 AM Referred By: Confirmed By:EUSEBIA SOUTH MD
--- NOTE | 2017-10-18 11:31 | PDOC ---
Attending Attestation - Resident Resident Name: Jorge Barahona - ED Attending Attestation I have performed the following: I have examined & evaluated the patient, The case was reviewed & discussed with the resident, I agree w/resident's findings & plan, Exceptions are as noted - Medical Decision Making 10/18/17 11:29 61 yo male with h/o htn, long time smoker quit 8 yrs ago, h/o throat ca, here with c/o bilat lower flank pain since day prior, pleuritic, otherwise no mod factors. intermittent cough x one month. on exam no reproducible tenderness on exam, normal nuero exam, normal abd exa. differential: pe, uti, pyleo, msk back strain, infection, plan cxr labs d dimer. if abnormal consider ct. ua. labs unremarkable, d dimer negative. will obtain ct a/p evaluate renal causes for pain. d/w dr. hightower, pt was ordered for outpt [facility] to evaluate secondary causes of htn. 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 The patient describes the back pain as sharp and worse with deep inspiration but not exacerbated with positional changes. The patient denies any trauma or heavy lifting. The patient denies weakness or numbness to the extremities, night sweats, weight loss, abdominal pain, chest pain, shortness of breath, headache and dizziness. Denies fever, chills, nausea, vomit, diarrhea and constipation. Denies dysuria, frequency, urgency and hematuria. No recent travel. Denies history of blood clots. Of note, the patient has had an intermittent cough and flu-like symptoms for the past month. The patient denies experiencing similar symptoms in the past. Allergies: NKA Past surgical history: None reported. Social history: 40 year smoker; quit 8 years ago. No reported drug or alcohol use. - Physicial Exam PE: 10/18/17 11:32 GENERAL: Awake, alert, and fully oriented, in no acute distress HEAD: No signs of trauma EYES: PERRLA, EOMI, sclera anicteric, conjunctiva clear ENT: Auricles normal inspection, hearing grossly normal, nares patent, oropharynx clear without exudates. Moist mucosa NECK: Normal ROM, supple, no lymphadenopathy, JVD, or masses LUNGS: Breath sounds equal, clear to auscultation bilaterally. No wheezes, and no crackles HEART: Regular rate and rhythm, normal S1 and S2, no murmurs, rubs or gallops ABDOMEN: Soft, nontender, normoactive bowel sounds. No guarding, no rebound. No masses BACK: No midline spinal tenderness. No CVA tenderness. EXTREMITIES: Normal range of motion, no edema. No clubbing or cyanosis. No cords, erythema, or tenderness NEUROLOGICAL: Cranial nerves II through XII grossly intact. Normal speech, normal gait. Strength is 5/5 in all 4 extremities. Sensation intact. SKIN: Warm, Dry, normal turgor, no rashes or lesions noted. <Shabana Garcia - Last Filed: 10/18/17 11:32>
[2017-10-18] MEDS ORDERED: ACETAMINOPHEN 1000 MG/100 ML VIAL (NON FORMULARY) IVPB ONE (11:57)
== END 2017-10-18 13:40 | disposition home or self-care (01) ==
LOC: JER 07:25
DX: M54.5 Low back pain (principal); I25.10 Atherosclerotic heart disease of native coronary artery without angina pectoris; Z98.61 Coronary angioplasty status; I10 Essential (primary) hypertension; E11.9 Type 2 diabetes mellitus without complications; Z79.84 Long term (current) use of oral hypoglycemic drugs; Z85.21 Personal history of malignant neoplasm of larynx
CPT/HCPCS: 36415; 71046-TC-FY; 74150-TC; 80053; 81003; 82550; 84484; 85025; 85379; 85610; 86850; 86900; 86901; 93005; 93010; 99284-25

== ENCOUNTER 2022-08-18 09:08 | Emergency (ER) | payer OTHER ==
[2022-08-18] MEDS ORDERED: FAMOTIDINE 20 MG/50 ML IVPB 20 MG/50 ML MG IVPB ONE ×2 (09:51→09:59)
[2022-08-18 09:52] VITALS: BMI 27.8
[2022-08-18] MEDS ORDERED: MAG HYDROX/AL HYDROX/SIMETH 30 ML UNIT-DOSE CUP PO ONE (09:52)
[2022-08-18 09:58] LABS: BASO % 0.6 % (0-2.0); EOS % 0.1 % (0-4.5); HEMATOCRIT 41.5 % (35.4-49); HEMOGLOBIN 14.4 GM/dL (11.7-16.9); LYMPH % 4.6 % (8-40); MCH 30.9 pg (25.7-33.7); MCHC 34.6 g/dl (32.0-35.9); MEAN CELL VOLUME 89.3 fl (80-96); MEAN PLT VOLUME 7.8 fl (7.5-11.1); MONO % 6.4 % (3.8-10.2); NEUT % 88.3 % (42.8-82.8); PLATELET COUNT 266 10^3/uL (134-434); RBC 4.65 M/mm3 (4.00-5.60); RDW 14.2 % (11.9-15.9); WHITE BLOOD COUNT 18.6 K/mm3 (4.0-10.0)
[2022-08-18] MEDS ORDERED: MAG HYDROX/AL HYDROX/SIMETH 30 ML UNIT-DOSE CUP ONE (09:59)
[2022-08-18 10:01] LABS: INR 1.23 (0.83-1.09); PROTHROMBIN TIME (PATIENT) 14.2 SEC (9.7-13.0)
[2022-08-18 10:04] LABS: ACTIVATED PTT 30.5 SECONDS (25.2-36.5)
[2022-08-18 10:15] LABS: ALBUMIN 4.2 g/dl (3.4-5.0); CALCIUM 9.3 mg/dL (8.5-10.1)
[2022-08-18 10:16] LABS: BLOOD UREA NITROGEN 12.7 mg/dL (7-18)
[2022-08-18 10:19] VITALS: RESP 20
[2022-08-18 10:19] LABS: CREATININE 1.2 mg/dL (0.55-1.3)
[2022-08-18 10:20] LABS: BILIRUBIN,TOTAL 0.8 mg/dL (0.2-1); TOT PROT 7.6 g/dl (6.4-8.2)
[2022-08-18] MEDS ORDERED: SODIUM CHLORIDE 0.9% 500 ML INFUS.BAG IV ONE (10:31)
[2022-08-18 12:26] LABS: N-TERMINAL BNP 1445.3 pg/ml (5-125)
[2022-08-18 14:48] LABS: PH,URINE 5.5 (5.0-8.0); URINE APPEARANCE CLEAR; URINE BILIRUBIN NEGATIVE (NEGATIVE); URINE COLOR YELLOW; URINE GLUCOSE (UA) 1+ (NEGATIVE); URINE KETONE TRACE (NEGATIVE); URINE LEUK ESTERASE NEGATIVE (NEGATIVE); URINE NITRITE NEGATIVE (NEGATIVE); URINE PROTEIN NEGATIVE (NEGATIVE); URINE UROBILINOGEN 0.2 mg/dL (0.2-1.0)
[2022-08-18 15:07] VITALS: BP 156/88; PULSE 93; TEMP 98
== END 2022-08-18 16:16 | disposition left against medical advice (07) ==
LOC: JER 09:08
PROC: 3E033GC Introduction of Other Therapeutic Substance into Peripheral Vein, Percutaneous Approach (ICD-10-PCS; principal; 2022-08-18)
DX: N28.1 Cyst of kidney, acquired (principal); R07.9 Chest pain, unspecified
CPT/HCPCS: 0241U-QW; 36415; 71045-TC-FY; 71275-TC; 74177-TC; 76705-TC; 76775-TC; 80053; 81003; 82150; 83690; 83880; 84484; 85025; 85610; 85730; 87086; 93005; 93010; 93308; 93970; 99285-25

== ENCOUNTER 2023-05-08 11:09 | Emergency (ER) | payer OTHER ==
[2023-05-08 11:19] VITALS: BP 120/78; PULSE 80; RESP 19; TEMP 98.5; BMI 26.4
[2023-05-08] MEDS ORDERED: SODIUM CHLORIDE 1,000 ML IV STA (11:25)
[2023-05-08 12:25] LABS: HEMATOCRIT 40.8 % (35.4-49); HEMOGLOBIN 13.9 G/dL (11.7-16.9); MCH 30.1 pg (25.7-33.7); MCHC 34.2 g/dl (32.0-35.9); MEAN CELL VOLUME 88.1 fl (80-96); MEAN PLT VOLUME 8.6 fl (7.5-11.1); PLATELET COUNT 223.4 10^3/uL (134-434); RBC 4.63 10^6/uL (4.00-5.60); RDW 13.9 % (11.9-15.9); WHITE BLOOD COUNT 7.8 10^3/uL (4.0-10.8)
[2023-05-08 12:37] LABS: ALBUMIN 3.9 g/dl (3.4-5.0); BILIRUBIN,TOTAL 0.5 mg/dl (0.2-1); CREATININE 1.3 mg/dl (0.6-1.3); POTASSIUM 3.6 mmol/L (3.5-5.1); TOT PROT 6.6 g/dl (6.4-8.2)
[2023-05-08 14:09] LABS: PLATELET ESTIMATE ADEQUATE
[2023-05-08] MEDS ORDERED: metroNIDAZOLE 250 MG TABLET PO ONE (15:02)
[2023-05-08] MEDS ORDERED: CIPROFLOXACIN 500 MG TABLET (RESTRICTED TO ID) PO ONE (15:02)
[2023-05-08] MEDS ORDERED: CIPROFLOXACIN 250 MG TABLET (RESTRICTED TO ID) PO ONE (15:12)
[2023-05-08] MEDS ORDERED: metroNIDAZOLE 250 MG TABLET ONE (15:12)
[2023-05-08 15:14] LABS: EPITHELIAL CELLS 0-5 /hpf
== END 2023-05-08 15:43 | disposition home or self-care (01) ==
LOC: FER 11:09
PROC: 3E0337Z Introduction of Electrolytic and Water Balance Substance into Peripheral Vein, Percutaneous Approach (ICD-10-PCS; principal; 2023-05-08)
DX: R10.32 Left lower quadrant pain (principal); K57.92 Diverticulitis of intestine, part unspecified, without perforation or abscess without bleeding
CPT/HCPCS: 36415; 74177-TC; 80053; 81003; 81015; 83690; 85027; 87086; 96360; 99285-25; Q9967

== ENCOUNTER 2024-05-30 09:39 | Emergency (ER) | payer OTHER ==
[2024-05-30 09:52] VITALS: BMI 25.1
[2024-05-30] MEDS: SODIUM CHLORIDE 0.9% 500 ML INFUS.BAG IV ONE (10:50)
[2024-05-30 11:10] LABS: HEMATOCRIT 43.2 % (35.4-49); HEMOGLOBIN 14.7 G/dL (11.7-16.9); MCH 29.8 pg (25.7-33.7); MCHC 34.1 g/dl (32.0-35.9); MEAN CELL VOLUME 87.3 fl (80-96); MEAN PLT VOLUME 8.9 fl (7.5-11.1); PLATELET COUNT 158.1 10^3/uL (134-434); RBC 4.95 10^6/uL (4.00-5.60); RDW 12.8 % (11.9-15.9); WHITE BLOOD COUNT 5.4 10^3/uL (4.0-10.8)
[2024-05-30 11:20] LABS: ALBUMIN 4.3 g/dl (3.4-5.0); BILIRUBIN,TOTAL 0.8 mg/dl (0.2-1); CALCIUM 9.2 mg/dl (8.5-10.1); CREATININE 1.5 mg/dl (0.6-1.3); PLATELET ESTIMATE ADEQUATE; POTASSIUM 3.5 mmol/L (3.5-5.1); TOT PROT 6.9 g/dl (6.4-8.2)
[2024-05-30] MEDS ORDERED: INSULIN (NOVOLOG) ASPART 100 UNITS/ML 10ML VIAL ONE (12:47)
[2024-05-30] MEDS: INSULIN (NOVOLOG) ASPART 100 UNITS/ML 10ML VIAL SQ ONE (12:55)
[2024-05-30 12:56] VITALS: BP 118/75; PULSE 93; RESP 16
[2024-05-30 13:03] VITALS: TEMP 100
[2024-05-30] MEDS: ACETAMINOPHEN 500 MG TABLET (FP) PO ONE (13:10)
== END 2024-05-30 13:21 | disposition home or self-care (01) ==
LOC: FER 09:39
DX: R11.2 Nausea with vomiting, unspecified (principal); M79.10 Myalgia, unspecified site; R50.9 Fever, unspecified; R42 Dizziness and giddiness; Z20.822 Contact with and (suspected) exposure to COVID-19
CPT/HCPCS: 0241U-QW; 36415; 80053; 84484; 85027; 93005; 99283-25